=== PATIENT | male | born 1970 | race Caucasian/White ===

== ENCOUNTER 2018-01-28 01:39 | Emergency (ER) | payer MEDICAID ==
[~2018-01-28] VITALS: Ht 167.6 cm; Wt 85.8 kg
[2018-01-28 01:52] VITALS: Ht 167.6 cm; Wt 85.8 kg
[2018-01-28 07:23] VITALS: BP 107/64
== END 2018-01-28 07:20 | disposition home or self-care (01) ==
LOC: ED 01:39
DX: K64.8 Other hemorrhoids (principal)
CPT/HCPCS: J1170; J2001; J2405